=== PATIENT | female | born 1985 | race Caucasian/White ===

== ENCOUNTER 2019-07-22 16:35 | Inpatient (IN) | payer SELFPAY ==
[2019-07-22 16:59] VITALS: BMI 35.4
--- NOTE | 2019-07-22 17:40 | HP.PCM_ITS ---
History Date of Admission: 07/22/19 Final JOSIAH: 07/25/19 Gestational age: 39 Weeks and 4 Days History of this : This is a 34 year-old, G [], P [], at weeks gestational age. Surgical History: Surgical History (Last Updated 07/22/19 @ 17:43 by Wendy Lux) H/O oral surgery Z98.890 Allergies No Known Allergies Allergy (Verified 07/22/19 17:00) Home Medications: Home Medications Vits [Prenatabs FA] 1 tab PO DAILY 07/22/19 Alcohol: None Number of Fetus(es): 1 NST - FHR Rate Baby A Baseline: 130 Variability:: Moderate Accelerations:: 15 x 15 NST Reactive:: Yes Uterine Activity:: Irregular History Past Pregnancies: Past Pregnancies Delivery Date Name GA/ Weeks Outcome Route Wt Infant Sex Labor Length Anesthesia Delivery Location Provider FOB Labs: See [facility] Physical Exam General: Alert, Oriented x3 Abdomen: Soft, Non Tender, Non-Distended, Gravid Neurological: Cranial nerves II-XII grossly intact PATIENT REGISTRATION MANAGER: Normal external genitalia Presentation: Cephalic Cervix Dilation (cm): 4 - AROM clear amniotic fluid Station: -2 Effacement (%): 4 Assessment/Plan This is a 34 year-old, at 39&4 weeks gestational age. Admit to L&D Expectant management Borderline BP & proteinuria in office - check preE labs Epidural as desired EFW - less that 4500g, patient with adequate pelvis
[2019-07-22] MEDS: Lactated Ringers 1,000 ML 50 ML IV (17:50)
[2019-07-22 18:24] LABS: Protein, Urine (Random) 53.1 mg/dL (<11.9); Protein:Creat Ratio 641 mg/g CRE (0-200)
[2019-07-22 18:30] LABS: Absolute Lymphocyte Count 1.78 X10^3/uL (0.83-4.51); Absolute Neutrophil Count 5.3 X10^3/uL (2.0-7.7); Basophil# 0.02 X10^3/uL; Basophil% 0.3 % (0-1); Eosinophil# 0.29 X10^3/uL; Eosinophils% 3.7 % (0-5); Hematocrit 37.6 % (37-47); Hemoglobin 12.5 g/dL (12.0-15.0); Lymphocyte # 1.78 X10^3/ul (4.0); Lymphocyte % 22.6 % (19-41); Mean Corp Hgb Conc 33.2 g/dL (32-36); Mean Corpuscular Hgb 29.4 pg (27.0-32.0); Mean Corpuscular Volume 88.5 fL (81-99); Mean Platelet Vol. 11.6 fl (6.2-12.0); Monocyte# 0.37 X10^3/uL; Monocyte% 4.7 % (0-10); NRBC Flagged by Analyzer 0 % (0-5); Neutrophil # 5.34 X10^3/uL (2.7-7.7); Neutrophil % 67.8 % (47-70); Platelet Count 220 K/mm3 (150-450); RBC Distribution Width CV 14.7 % (11.6-14.6); RBC Distribution Width SD 47.3 fl (35.1-43.9); Red Blood Count 4.25 M/mm3 (4.2-5.4); White Blood Count 7.9 K/mm3 (4.4-11.0)
[2019-07-22 18:37] LABS: AST(SGOT) 29 U/L (15-37); Alanine Aminotransfer ALT/SGPT 31 U/L (13-56); Creatinine, Serum 0.81 mg/dL (0.55-1.02); EST Glomerular Filtration Rate 87 mL/min (>60); Est Glom Filt Rate - Afr Amer 105 mL/min (>60); Estimated Creatinine Clearance 78.86 ml/min; Uric Acid 5.4 mg/dL (2.6-6.0)
[2019-07-22] MEDS: Oxytocin 30 units/NS 500 ml 30 UNITS/500 ML IV.SOLN IV (22:29)
[2019-07-23] VITALS (15 sets, daily range): BP systolic 106–137; BP diastolic 61–86; PULSE 76–91; RESP 15–18; TEMP 36.8–37.7; O2SAT 95–99
[2019-07-23] MEDS: fentaNYL-bupivacaine (epidural) 100 ML BAG EPIDURAL ×2 (02:25→11:35)
[2019-07-23] MEDS: Amnioinfusion- 0.9% NS 1,000 ML IV.SOLN. 50 ML INTRA-UTER (03:33)
[2019-07-23] MEDS: Lactated Ringers 1,000 ML 200 ML IV ×3 (06:52→14:20)
--- NOTE | 2019-07-23 08:15 | PCM.PN.BLA ---
Progress Note At bedside to check patient. Cvx 8/80/-1, unable to tell position given caput. Category 1 tracing. [employer] w/ ctx's q 4-5 min. Not in adequate labor. Will restart pitocin.
[2019-07-23] MEDS: Sodium Citrate/Citric Acid 30 ML UDC PO (17:04)
--- NOTE | 2019-07-23 17:24 | PCM.PN.BLA ---
Progress Note Delayed note. At bedside to check pt. Still 9 cm dilated with cervix noted anteriorly and along patient's left side. Cervix is swollen. Unable to palpate position given significant caput. Recommended section for arrest of dilation. Has remained 9 cm dilated for 6 hours with inadequate contractions and at times coupling of contractions. Temp 100.3. Reviewed r/b/a of a section and patient gave consent. She desires to proceed with a section. Category 1 tracing.
[2019-07-23] MEDS: Oxytocin 30 units/NS 500 ml 30 UNITS/500 ML IV.SOLN 167 UNITS IV (19:00)
[2019-07-23] MEDS: Cefazolin 2 GM in 0.9% Normal Saline 100 ML IV (19:06)
--- NOTE | 2019-07-23 19:13 | PCM.OPRPT ---
Problem List (1) Failure to progress in labor Status: Acute (2) 39 weeks gestation of Status: Acute Report of Operation Date of Procedure: 07/23/19 Pre-Operative Diagnosis: 39 week gestation, failure to progress in labor Post-Operative Diagnosis: As above, narrow maternal pelvis, CPD Surgery/Procedure Performed:: PLTCS via pfannenstiel incision Description of Surgical Findings:: Normal-appearing uterus and bilateral tubes and ovaries. Narrow maternal pelvis. Fetus in vertex position. Clear fluid. Intact and normal appearing placenta. Type of Anesthesia:: Epidural Specimen's removed: Placenta Drains: Garcia Estimated Blood Loss (mL): 900 cc Description of Procedure: Indications: The patient presented in labor at 39 weeks gestation. She progressed to 9.5 cm with pitocin. She remained at 9.5 cm for 6 hours despite inadequate contractions. Pitocin had to occasionally be turned off for intolerance. Her cervix became swollen and she had a temperature of 100.3. After discussion of risks, benefits, and alternatives she desired to proceed with a primary section for failure to progress in labor. Procedure: The patient was taken to the operating room where she was prepped and draped in the usual fashion in supine position with a leftward tilt. The epidural was used for anesthesia. A Pfannenstiel skin incision was made and carried to the underlying layer of the fascia using the scalpel. The fascia was incised in the midline and extended laterally using Fuentes scissors. The fascia was dissected off of the rectus muscles using a combination of blunt and sharp dissection. The rectus muscles were entered in the midline. The peritoneum was entered carefully using sharp dissection, and the peritoneal incision was extended cephalad and caudad with good visualization of the bladder. A low transverse incision was made on the uterus. Clear fluid was noted. A hand from below was needed to elevate the head to the incision. The head was then delivered without any force or delay, followed easily by the body. The cord was clamped and cut after 60 sec delay. The baby was handed off to the nursery staff. The maternal pelvis was felt to be very narrow, and there was cephalopelvic disproportion. The placenta was delivered using manual extraction and noted to be normal-appearing. The uterus was exteriorized and cleared of all clot and debris. The adnexa were noted to be normal. The uterine incision was closed in a double layer using Vicryl in a running fashion. The uterus was then placed back in the abdomen. The uterine incision was noted to be hemostatic. The peritoneum was closed with Vicryl in a running fashion. The fascia was closed with Vicryl in a running fashion. The subcutaneous layer was irrigated and closed reapproximated using Vicryl. The skin was reapproximated in a running layer using Monocryl. At the end of the case all instrument counts were correct. The patient was taken to the recovery room in stable condition. Grafts/Implants Used: None - Complications None - Admit VTE Documentation VTE Present on Admission: No VTE Mechan Device Prophylaxis: SCD's VTE Pharm Prophylaxis ordered?: Yes Delivery Classification: GAYATHRI Gestational age: 39 weeks Date of Procedure: 07/23/19 Indications for : Failure to Progress Amniotic Fluid Description: Clear Drain: Garcia to straight drain Cord Entanglement: Around neck x 1, loose Nuchal Cord Compression: Without compression Cord Vessel Description: 3 Vessels Infant Gender: Male Delayed cord clamping: Yes Complications: None
--- NOTE | 2019-07-23 19:35 | NURSING ---
Surgicel powder lot number [id number]
[2019-07-23] MEDS: Acetaminophen 500 MG Tablet 1000 MG PO (21:17)
[2019-07-23] MEDS: Lactated Ringers 1,000 ML 100 ML IV (22:03)
[2019-07-24] VITALS (16 sets, daily range): BP systolic 93–110; BP diastolic 46–73; PULSE 77–100; RESP 14–18; TEMP 36.9–37.5; O2SAT 95–99
[2019-07-24] MEDS: Ketorolac 30 MG/ML Syringe IV ×4 (00:06→18:12)
[2019-07-24 06:12] LABS: Hematocrit 29.6 % (37-47); Hemoglobin 9.9 g/dL (12.0-15.0); Mean Corp Hgb Conc 33.4 g/dL (32-36); Mean Corpuscular Hgb 29.9 pg (27.0-32.0); Mean Corpuscular Volume 89.4 fL (81-99); Mean Platelet Vol. 10.7 fl (6.2-12.0); Platelet Count 167 K/mm3 (150-450); RBC Distribution Width CV 14.7 % (11.6-14.6); RBC Distribution Width SD 47.8 fl (35.1-43.9); Red Blood Count 3.31 M/mm3 (4.2-5.4); White Blood Count 16.9 K/mm3 (4.4-11.0)
--- NOTE | 2019-07-24 10:41 | NURSING ---
pt. asymptomatic for dizziness or feeling light headed
[2019-07-24] MEDS: 0.9% Saline Lock 10 ML Syringe IV ×2 (12:07→18:13)
--- NOTE | 2019-07-24 13:07 | PCM.PN.OB ---
Patient Problems: Active and Suspected Problems (Last Updated 07/22/19 @ 17:43 by Wendy Lux) Failure to progress in labor (Acute) Subjective: Patient is doing well. She is up to chair. She denies lightheadedness, dizziness, chest pain, shortness of breath, palpitations, uncontrolled pain, leg pain. Lochia is normal. She is tolerating food without nausea or vomiting. Breast-feeding without any complaints. - Physical Exam Vitals/I&O's: Vital Signs Temp Pulse Resp BP Pulse Ox 98.9 F 96 16 94/46 L 98 07/24/19 12:31 07/24/19 12:31 07/24/19 12:31 07/24/19 12:31 07/24/19 12:31 Oxygen Delivery Method Room Air Weight: 199 lb 15.348 oz Body Mass Index (BMI) 35.4 Intake and Output for Last 24 Hours 07/22/19 07/23/19 07/24/19 23:59 23:59 23:59 Intake Total 268.70 / 268.70 3651.86 / 3651.86 995 / 995 Output Total 650 / 650 800 / 800 Balance 268.70 / 268.70 3001.86 / 3001.86 195 / 195 General: Alert, No apparent distress HEENT: Atraumatic Abdomen: Soft, Non Tender, - - FF, dressing c/d/i Extremities: No Calf Tenderness, Edema Skin: No rashes Neurological: Neuro grossly intact Psych/Mental Status: Normal Affect, Appropriate Laboratory Results 07/24/19 06:00: WBC 16.9 H, RBC 3.31 L, Hgb 9.9 L, Hct 29.6 L, MCV 89.4, MCH 29.9, MCHC 33.4, RDW Std Deviation 47.8 H, RDW Coeff of Ganesh 14.7 H, Plt Count 167, MPV 10.7 Current Medications Acetaminophen (Tylenol) 1,000 mg PO Q8H PRN PRN Reason: Pain Score 1-3/10 Last Admin: 07/23/19 21:17 Dose: 1,000 mg Documented by: Bisacodyl (Dulcolax) 10 mg RECTAL UD PRN PRN Reason: If no BM Enoxaparin Sodium (Lovenox) 40 mg SC DAILY LUZ Hydrocortisone (Hytone) 1 applic TOPICAL TID PRN PRN; Protocol PRN Reason: Discomfort Lactated Ringer's () 1,000 mls @ 100 mls/hr IV .Q10H [facility] Last Infusion: 07/24/19 08:00 Dose: Infused Documented by: Naloxone HCl 4 mg/ Dextrose 504 mls @ 0 mls/hr IV .Q0M PRN; Protocol PRN Reason: Respiratory depression Ketorolac Tromethamine (Toradol) 30 mg IV Q6H [facility] Stop: 07/25/19 18:16 Last Admin: 07/24/19 12:07 Dose: 30 mg Documented by: Methylergonovine Maleate (Methergine) 0.2 mg IM X1 PRN PRN Reason: Uterine Atony Naloxone HCl (Narcan) 0.02 mg IV Q1M PRN PRN Reason: RR <10 and pt unresponsive Ondansetron HCl (Zofran) 4 mg IV Q4H PRN PRN PRN Reason: Nausea Oxycodone HCl (Oxyir) 5 - 10 mg PO Q4H PRN PRN PRN Reason: Pain Score 4-10/10 Prochlorperazine Edisylate (Compazine Iv) 10 mg IV Q6H PRN PRN PRN Reason: NAUSEA Senna/Docusate Sodium (Senokot-S, Lorie-Colace) 0 tablet PO DAILY PRN PRN Reason: Constipation Simethicone (Mylicon) 80 mg PO PCHS PRN PRN Reason: Indigestion/stomach pain Sodium Chloride () 5 - 15 ml IV UD PRN PRN Reason: SALINE FLUSH Last Admin: 07/24/19 12:07 Dose: 10 ml Documented by: Medical Necessity - Tobacco Use Smoking Status: Never smoker Assessment/Plan All Active Problems (Last Updated 07/22/19 @ 17:43 by Wendy Lux) Failure to progress in labor (Acute) PPD#1 s/p PLTCS for FTP in labor - Pt doing well - - Routine care - Dispo: Possible d/c home tomorrow
--- NOTE | 2019-07-24 14:20 | NURSING ---
discussed patient's increase in WBC count and low grade fever overnight with Dr. Orellana, discussed pt.'s afebrile condition throughout the day, Dr. Orellana does not wish to draw any further CBC's at this point, discussed to monitor patients clinical presentation further for indication of infection and watch for increased pain in abdomen
[2019-07-24] MEDS: Enoxaparin 40 MG/0.4 ML Syringe SC (20:34)
[2019-07-25] MEDS: 0.9% Saline Lock 10 ML Syringe IV (00:04)
[2019-07-25] MEDS: Ketorolac 30 MG/ML Syringe IV (00:04)
[2019-07-25 01:52] VITALS: BP 115/55; PULSE 98; RESP 18; TEMP 36.5
[2019-07-25] MEDS: Acetaminophen 500 MG Tablet 1000 MG PO (06:07)
--- NOTE | 2019-07-25 07:00 | NURSING ---
Encouraged patient to ambulate to bathroom to urinate. Educated patient on blood clot risks due to lack of ambulation. Patient verbalizes understanding, but told this RN, not right now when asked if she would ambulate to the bathroom.
--- NOTE | 2019-07-25 08:18 | PCM.PN.OB ---
Patient Problems: Active and Suspected Problems (Last Updated 07/22/19 @ 17:43 by Wendy Lux) Failure to progress in labor (Acute) 39 weeks gestation of (Acute) Subjective: Seen at bedside, doing well. Patient reports good pain control. Mild lochia. Voiding without difficulty. Patient denies any headaches, visual changes. Breast-feeding is going well. Patient requesting DC home tomorrow - Physical Exam Vitals/I&O's: Vital Signs Temp Pulse Resp BP Pulse Ox 97.7 F L 98 18 115/55 L 97 07/25/19 01:52 07/25/19 01:52 07/25/19 01:52 07/25/19 01:52 07/24/19 20:44 Oxygen Delivery Method Room Air Weight: 90.7 kg Body Mass Index (BMI) 35.4 Intake and Output for Last 24 Hours 07/23/19 07/24/19 07/25/19 23:59 23:59 23:59 Intake Total 3651.86 / 3651.86 995 / 995 Output Total 650 / 650 1450 / 1450 Balance 3001.86 / 3001.86 -455 / -455 General: Alert, Oriented x3 Abdomen: Soft, Non-Distended, - - fundus firm. dressing dry and intact Extremities: No Calf Tenderness Current Medications Acetaminophen (Tylenol) 1,000 mg PO Q8H PRN PRN Reason: Pain Score 1-3/10 Last Admin: 07/25/19 06:07 Dose: 1,000 mg Documented by: Bisacodyl (Dulcolax) 10 mg RECTAL UD PRN PRN Reason: If no BM Enoxaparin Sodium (Lovenox) 40 mg SC DAILY [facility] Last Admin: 07/24/19 20:34 Dose: 40 mg Documented by: Hydrocortisone (Hytone) 1 applic TOPICAL TID PRN PRN; Protocol PRN Reason: Discomfort Lactated Ringer's () 1,000 mls @ 100 mls/hr IV .Q10H [facility] Last Admin: 07/25/19 05:13 Dose: Not Given Documented by: Naloxone HCl 4 mg/ Dextrose 504 mls @ 0 mls/hr IV .Q0M PRN; Protocol PRN Reason: Respiratory depression Ketorolac Tromethamine (Toradol) 30 mg IV Q6H [facility] Stop: 07/25/19 18:16 Last Admin: 07/25/19 06:09 Dose: Not Given Documented by: Methylergonovine Maleate (Methergine) 0.2 mg IM X1 PRN PRN Reason: Uterine Atony Naloxone HCl (Narcan) 0.02 mg IV Q1M PRN PRN Reason: RR <10 and pt unresponsive Ondansetron HCl (Zofran) 4 mg IV Q4H PRN PRN PRN Reason: Nausea Oxycodone HCl (Oxyir) 5 - 10 mg PO Q4H PRN PRN PRN Reason: Pain Score 4-10/10 Prochlorperazine Edisylate (Compazine Iv) 10 mg IV Q6H PRN PRN PRN Reason: NAUSEA Senna/Docusate Sodium (Senokot-S, Lorie-Colace) 0 tablet PO DAILY PRN PRN Reason: Constipation Simethicone (Mylicon) 80 mg PO PCHS PRN PRN Reason: Indigestion/stomach pain Sodium Chloride () 5 - 15 ml IV UD PRN PRN Reason: SALINE FLUSH Last Admin: 07/25/19 00:04 Dose: 10 ml Documented by: Medical Necessity - Tobacco Use Smoking Status: Never smoker Assessment/Plan All Active Problems (Last Updated 07/22/19 @ 17:43 by Wendy Lux) Failure to progress in labor (Acute) 39 weeks gestation of (Acute) POD#2, doing well routine care pain mgmt ambulation dc home likely tomorrow
[2019-07-25 08:38] VITALS: BP 108/68; PULSE 79; RESP 18; TEMP 37.3
[2019-07-25] MEDS: Enoxaparin 40 MG/0.4 ML Syringe SC (10:17)
[2019-07-25] MEDS: Ibuprofen 600 MG Tablet PO ×2 (10:28→16:37)
[2019-07-25 14:00] VITALS: BP 116/72; PULSE 82; TEMP 37.2; O2SAT 94
[2019-07-25 16:00] VITALS: BP 137/67; PULSE 97; RESP 16; TEMP 36.4; O2SAT 96
[2019-07-25 19:30] VITALS: BP 138/79; PULSE 92; RESP 18; TEMP 36.9; O2SAT 99
[2019-07-26 01:38] VITALS: BP 133/56; PULSE 87; RESP 16; TEMP 36.9; O2SAT 96
[2019-07-26] MEDS: Ibuprofen 600 MG Tablet PO ×2 (03:26→14:06)
--- NOTE | 2019-07-26 08:41 | PCM.PN.OB ---
Patient Problems: Active and Suspected Problems (Last Updated 07/22/19 @ 17:43 by Wendy Lux) Failure to progress in labor (Acute) 39 weeks gestation of (Acute) Subjective: Patient seen at bedside, doing well. Patient reports good pain control. Mild lochia. Passing flatus. Tolerating regular diet. Breast-feeding going well. - Physical Exam Vitals/I&O's: Vital Signs Temp Pulse Resp BP Pulse Ox 98.5 F 87 16 133/56 H 96 07/26/19 01:38 07/26/19 01:38 07/26/19 01:38 07/26/19 01:38 07/26/19 01:38 Oxygen Delivery Method Room Air Weight: 90.7 kg Body Mass Index (BMI) 35.4 Intake and Output for Last 24 Hours 07/24/19 07/25/19 07/26/19 23:59 23:59 23:59 Intake Total 995 / 995 Output Total 1450 / 1450 Balance -455 / -455 General: Alert, Oriented x3 Abdomen: Soft, Non-Distended, - - fundus firm. Dressing dry and intact Extremities: No Calf Tenderness Current Medications Acetaminophen (Tylenol) 1,000 mg PO Q8H PRN PRN Reason: Pain Score 1-3/10 Last Admin: 07/25/19 06:07 Dose: 1,000 mg Documented by: Bisacodyl (Dulcolax) 10 mg RECTAL UD PRN PRN Reason: If no BM Enoxaparin Sodium (Lovenox) 40 mg SC DAILY [facility] Last Admin: 07/25/19 10:17 Dose: 40 mg Documented by: Hydrocortisone (Hytone) 1 applic TOPICAL TID PRN PRN; Protocol PRN Reason: Discomfort Naloxone HCl 4 mg/ Dextrose 504 mls @ 0 mls/hr IV .Q0M PRN; Protocol PRN Reason: Respiratory depression Ibuprofen (Motrin) 600 mg PO Q6H PRN PRN PRN Reason: Pain Score 1-3/10 Last Admin: 07/26/19 03:26 Dose: 600 mg Documented by: Methylergonovine Maleate (Methergine) 0.2 mg IM X1 PRN PRN Reason: Uterine Atony Naloxone HCl (Narcan) 0.02 mg IV Q1M PRN PRN Reason: RR <10 and pt unresponsive Ondansetron HCl (Zofran) 4 mg IV Q4H PRN PRN PRN Reason: Nausea Oxycodone HCl (Oxyir) 5 - 10 mg PO Q4H PRN PRN PRN Reason: Pain Score 4-10/10 Prochlorperazine Edisylate (Compazine Iv) 10 mg IV Q6H PRN PRN PRN Reason: NAUSEA Senna/Docusate Sodium (Senokot-S, Lorie-Colace) 0 tablet PO DAILY PRN PRN Reason: Constipation Simethicone (Mylicon) 80 mg PO PCHS PRN PRN Reason: Indigestion/stomach pain Last Admin: 07/25/19 16:37 Dose: 80 mg Documented by: Sodium Chloride () 5 - 15 ml IV UD PRN PRN Reason: SALINE FLUSH Last Admin: 07/25/19 00:04 Dose: 10 ml Documented by: Medical Necessity - Tobacco Use Smoking Status: Never smoker Assessment/Plan All Active Problems (Last Updated 07/22/19 @ 17:43 by Wendy Lux) Failure to progress in labor (Acute) 39 weeks gestation of (Acute) POD#3,doing well routine care pain mgmt dc home
--- NOTE | 2019-07-26 08:43 | DCINST_ITS ---
Discharge Diet: No Restrictions Discharge Activity: Return to Normal Activity, May Not Drive - for 2 weeks, May not drive while taking narcotic pain medications., May Shower, May Take a Tub Bath - in 7 days. May resume sexual activity in: 4-6 weeks Lifting Restrictions: 20 pounds Additional Activity Instructions:: Nothing in the vagina for 4-6 weeks. You may return to work/school in 6 weeks. Call your doctor if your incision/area has: Continuous Slow Oozing, Sudden Increased Bleeding, Increased Pain/ Swelling, Increased Redness, Foul Smelling Discharge Call your doctor if you observe: Fever of 101 or Higher, Using more than one pad per hour - for 2 hours Suture Line Care: Avoid Pulling/Pushing, Avoid Pinching/Bending Cleanse incision/area with: Keep Dressing Clean & Dry Additional Instructions: If you experience any of the following, contact your healthcare provider. * Bleeding that soaks a pad every hour for 2 hours * Fever 100.4 or higher * Unrelieved incision or abdominal pain * Swelling, redness, discharge or bleeding from your incision or episiotomy site * Your incision begins to separate * Problems urinating (including inability to urinate or burning while urinating). * Visual changes * Severe headache * Flu-like symptoms * Pain or redness in one of both of your breasts * Pain, warmth, tenderness or swelling in your legs, especially the calf area * Frequent nausea and vomiting * Symptoms of depression or anxiety If you experience any of the following, call 911 or go to the nearest Emergency Room. * Chest pain * Problems breathing * Seizure activity * Partial or complete paralysis of a body part, slurred speech, weakness or drooping of the face, or a sudden inability to walk or hold your balance Allergies/Adverse Reactions: Allergies No Known Allergies Allergy (Verified 07/22/19 17:00) Medications to take at Discharge Vits [Prenatabs FA ] 1 tab PO DAILY 07/22/19 Acetaminophen [Tylenol] 1,000 mg PO Q8H PRN #30 tab 07/25/19 Ibuprofen [Motrin] 600 mg PO Q6H PRN PRN #60 tab 07/25/19 Oxycodone [Oxyir] 5 - 10 mg PO Q4H PRN PRN 7 Days #20 tab 07/25/19 Senna/Docusate Sodium [Senokot-S] 1 tab PO DAILY PRN #30 tab 07/25/19 SimETHICONE [Mylicon] 80 mg PO PCHS PRN #30 tab 07/25/19 The following prescriptions were given: Ibuprofen [Motrin] 600 mg PO Q6H PRN PRN #60 tab PRN Reason: Pain Or Fever Transmission Status: Received by [id number] SimETHICONE [Mylicon] 80 mg PO PCHS PRN #30 tab PRN Reason: Indigestion/stomach pain Transmission Status: Received by [id number] Oxycodone [Oxyir] 5 - 10 mg PO Q4H PRN PRN 7 Days #20 tab PRN Reason: Pain Score 6-10/10 Transmission Status: Received by [id number] Senna/Docusate Sodium [Senokot-S] 1 tab PO DAILY PRN #30 tab PRN Reason: Constipation Transmission Status: Received by [id number] Acetaminophen [Tylenol] 1,000 mg PO Q8H PRN #30 tab PRN Reason: Pain Score 1-3/10 Transmission Status: Received by [id number] Follow-Up: Call to make an appointment with your doctor for an incision check in 1 week. You will also need a 6 week post- follow up appointment. Test results from this visit will be discussed in further detail at your follow- up appointment, if applicable. Please Follow Up With: Liz Matthews MD - Call to make an appointment for an incision check in 1 [phone] When: You will need a post- check in 6 weeks. Primary Care Physician: Care Physician,No Primary [Primary Care Provider] -
--- NOTE | 2019-07-26 08:44 | PCM.DC.BLA ---
Discharge Summary Date of Admission: 07/22/19 Date of Discharge: 07/26/19 Summary: Patient was admitted to [facility] for labor induction for elevated blood pressure. She progressed to 9-1/2 cm and had arrest of dilation with cephalopelvic disproportion. She underwent a primary low transverse section by Dr. Ashley Orellana with an uncomplicated postoperative course. She was discharged home on postoperative day #3 in stable condition. Patient Problems: Active and Suspected Problems (Last Updated 07/22/19 @ 17:43 by Wendy Lux) Failure to progress in labor (Acute) 39 weeks gestation of (Acute) - Physical Exam Vitals/I&O's: Vital Signs Temp Pulse Resp BP Pulse Ox 98.5 F 87 16 133/56 H 96 07/26/19 01:38 07/26/19 01:38 07/26/19 01:38 07/26/19 01:38 07/26/19 01:38 Oxygen Delivery Method Room Air Weight: 90.7 kg Body Mass Index (BMI) 35.4 Intake and Output for Last 24 Hours 07/24/19 07/25/19 07/26/19 23:59 23:59 23:59 Intake Total 995 / 995 Output Total 1450 / 1450 Balance -455 / -455 Current Medications Acetaminophen (Tylenol) 1,000 mg PO Q8H PRN PRN Reason: Pain Score 1-3/10 Last Admin: 07/25/19 06:07 Dose: 1,000 mg Documented by: Bisacodyl (Dulcolax) 10 mg RECTAL UD PRN PRN Reason: If no BM Enoxaparin Sodium (Lovenox) 40 mg SC DAILY [facility] Last Admin: 07/25/19 10:17 Dose: 40 mg Documented by: Hydrocortisone (Hytone) 1 applic TOPICAL TID PRN PRN; Protocol PRN Reason: Discomfort Naloxone HCl 4 mg/ Dextrose 504 mls @ 0 mls/hr IV .Q0M PRN; Protocol PRN Reason: Respiratory depression Ibuprofen (Motrin) 600 mg PO Q6H PRN PRN PRN Reason: Pain Score 1-3/10 Last Admin: 07/26/19 03:26 Dose: 600 mg Documented by: Methylergonovine Maleate (Methergine) 0.2 mg IM X1 PRN PRN Reason: Uterine Atony Naloxone HCl (Narcan) 0.02 mg IV Q1M PRN PRN Reason: RR <10 and pt unresponsive Ondansetron HCl (Zofran) 4 mg IV Q4H PRN PRN PRN Reason: Nausea Oxycodone HCl (Oxyir) 5 - 10 mg PO Q4H PRN PRN PRN Reason: Pain Score 4-10/10 Prochlorperazine Edisylate (Compazine Iv) 10 mg IV Q6H PRN PRN PRN Reason: NAUSEA Senna/Docusate Sodium (Senokot-S, Lorie-Colace) 0 tablet PO DAILY PRN PRN Reason: Constipation Simethicone (Mylicon) 80 mg PO PCHS PRN PRN Reason: Indigestion/stomach pain Last Admin: 07/25/19 16:37 Dose: 80 mg Documented by: Sodium Chloride () 5 - 15 ml IV UD PRN PRN Reason: SALINE FLUSH Last Admin: 07/25/19 00:04 Dose: 10 ml Documented by:
[2019-07-26 09:30] VITALS: BP 133/71; PULSE 63; RESP 18; TEMP 36.6; O2SAT 99
[2019-07-26] MEDS: Enoxaparin 40 MG/0.4 ML Syringe SC (09:33)
[2019-07-26] MEDS: Acetaminophen 500 MG Tablet 1000 MG PO (09:34)
[2019-07-26 14:08] VITALS: BP 126/70; PULSE 74; RESP 17; TEMP 36.8
== END 2019-07-26 16:55 | disposition home or self-care (01) | DRG 788 ==
PROVIDERS: Obstetrics & Gynecology; Admitting Provider Obstetrics & Gynecology; Referring Provider Obstetrics & Gynecology; Visit Provider Obstetrics & Gynecology
DX: O12.14 Gestational proteinuria, complicating childbirth (principal); R03.0 Elevated blood-pressure reading, without diagnosis of hypertension; O33.9 Maternal care for disproportion, unspecified; O62.2 Other uterine inertia; O69.81X0 Labor and delivery complicated by cord around neck, without compression, not applicable or unspecified; Z3A.39 39 weeks gestation of pregnancy; Z37.0 Single live birth
CPT/HCPCS: 59025; 59050; 82565; 82570; 84156; 84450; 84460; 84550; 85025; 85027; 86850; 86900; 86901; 99218; J7030; J7120; A4216; G0378; J2405

== ENCOUNTER → 2020-07-30 | Outpatient (CLI) | payer MEDICARE, SELFPAY ==
[2020-07-30 09:02] VITALS: BMI 26.2
== END | disposition home or self-care (01) ==
LOC: LABSPEC 10:28
PROVIDERS: Referring Provider Physician Assistant Surgical; Visit Provider Physician Assistant Surgical
DX: Z20.828 Contact with and (suspected) exposure to other viral communicable diseases (principal)
CPT/HCPCS: 87635; U0003

== ENCOUNTER 2022-10-09 10:48 | Inpatient (IN) | payer BC, SELFPAY ==
[2022-10-09] VITALS (15 sets, daily range): BP systolic 103–139; BP diastolic 53–88; PULSE 71–109; RESP 14–16; TEMP 36.1–36.6; O2SAT 95–100; BMI 35.6
[2022-10-09 11:26] LABS: Absolute Lymphocyte Count 1.67 X10^3/uL (0.83-4.51); Absolute Neutrophil Count 3.4 X10^3/uL (2.0-7.7); Basophil# 0.02 X10^3/uL; Basophil% 0.4 % (0-1); Eosinophil# 0.23 X10^3/uL; Eosinophils% 4.1 % (0-5); Hematocrit 34.5 % (37-47); Hemoglobin 11.4 g/dL (12.0-15.0); Lymphocyte # 1.67 X10^3/ul (0.83-4.51); Lymphocyte % 29.7 % (19-41); Mean Corpuscular Hgb 28.9 pg (27.0-32.0); Mean Corpuscular Volume 87.6 fL (81-99); Mean Platelet Vol. 10.4 fl (6.2-12.0); Monocyte# 0.25 X10^3/uL; Monocyte% 4.4 % (0-10); NRBC Flagged by Analyzer 0 % (0-5); Neutrophil # 3.39 X10^3/uL (2.7-7.7); Neutrophil % 60.3 % (47-70); Platelet Count 223 K/mm3 (150-450); RBC Distribution Width CV 14.6 % (11.6-14.6); RBC Distribution Width SD 47.1 fl (35.1-43.9); Red Blood Count 3.94 M/mm3 (4.2-5.4); White Blood Count 5.6 K/mm3 (4.4-11.0)
[2022-10-09] MEDS: Acetaminophen 500 MG Tablet 1000 MG PO ×3 (11:29→23:36)
[2022-10-09] MEDS: Lactated Ringers 1,000 ML 999 ML IV (11:30)
[2022-10-09] MEDS: Lactated Ringers 1,000 ML 150 ML IV (12:23)
--- NOTE | 2022-10-09 14:39 | NURSING ---
1200 plan of care is to proceed with the scheduled csection at 1530 today since pt. had orange juice at 1000
--- NOTE | 2022-10-09 14:40 | NURSING ---
dr crespo office notified that a H and P needs done on pt. prior to csection
[2022-10-09] MEDS: Sodium Citrate/Citric Acid 30 ML UDC PO (15:12)
[2022-10-09] MEDS: Cefazolin 2 GM in 0.9% Normal Saline 100 ML IV (15:39)
--- NOTE | 2022-10-09 15:42 | PCM.HP.OB ---
HPI - General General Date of Admission: 10/09/22 HPI Narrative RADHA NESS, is a 37 F who presents Maternal Data Information Final JOSIAH: 10/11/22 Gestational age: 39&5 PFSH PFSH Medical History Advanced maternal age (AMA) in Asthma Gallstones Home Medications vits,calcium no.78-iron fumarate-folic acid 29 mg-1 mg tablet 1 tab PO DAILY 07/22/19 [History Last Taken 07/21/19 22:00] albuterol 90 mcg/actuation aerosol inhaler 90 mcg inhalation Q6H PRN PRN asthma 10/09/22 [History Last Taken Unknown] aspirin 81 mg chewable tablet 81 mg PO DAILY 10/09/22 [History Last Taken Unknown] cetirizine 10 mg tablet (Zyrtec) 10 mg PO DAILY asthma 10/09/22 [History Last Taken 10/08/22 22:00] montelukast 10 mg tablet (Singulair) 10 mg PO DAILY asthma 10/09/22 [History Last Taken 10/08/22 22:00] Allergy/AdvReac Type Severity Reaction Status Date / Time No Known Allergies Allergy Verified 07/30/20 09:04 Surgical History (Updated 10/09/22 @ 15:[address] Wendy Lux MD) H/O oral surgery Previous section Previous section Social History Smoking Status: Never smoker History Elective abortions Hx Para 1 Spontaneous abortions Hx # Term Pregnancies Ectopic pregnancies Hx # Pregnancies Multiple births # of living children Vital Signs Vital Signs Vital Signs: 10/09/22 11:36 10/09/22 15:18 Temperature 97.3 F L 97 F L Temperature Source Temporal Temporal Pulse Rate 90 84 Respiratory Rate 16 16 Blood Pressure 118/73 139/88 H Blood Pressure Mean 88 105 Blood Pressure Source Monitor Monitor Blood Pressure Position Semi-Fowlers Semi-Fowlers Blood Pressure Location Left Arm Left Arm Pulse Ox 99 95 Oxygen Delivery Method Room Air Room Air Weight Weight: 201 lb Body Mass Index (BMI) 35.6 Labs Labs Labs: Blood Type A POSITIVE Antibody Screen NEGATIVE Hct 34.5 % (37-47) L Hgb 11.4 g/dL (12.0-15.0) L Rhogam given: No See [facility] H&P Assessment & Plan (1) Previous section: COMMENT: @ 39&5 PLAN: Plan Admit to L&D MOD - patient counseled on R/B/A and will proceed with repeat . Informed consent signed. Routine care
--- NOTE | 2022-10-09 16:52 | EX.PCM.OBRPT ---
Maternal Data Information Final JOSIAH: 10/11/22 Gestational age: 39&5 Details Operative Information Date of Procedure: 10/09/22 Pre-Operative Diagnosis: (1) Prior section Post-Operative Diagnosis: Same Indications for : Repeat Elective Indications Narrative: The patient was taken to the operating room where spinal anesthesia was placed & found to be adequate. She was prepped and draped in the dorsal supine position with a leftward tilt. A Pfannenstiel skin incision was made approximately 2 cm above the symphysis pubis and carried through to the underlying fascia with the scalpel. The fascia was incised incised in the midline and extended laterally with the Fuentes scissors. The rectus muscles were in the midline and the peritoneum was entered carefully and bluntly. The peritoneal incision was stretched and the bladder blade was inserted. Vesicouterine peritoneum was tented up, incised & then bladder flap created gently. The uterine incision was made in a low transverse fashion with the scalpel and extended superiorly and inferiorly with blunt dissection. The 's head was brought to the incision in the flexed position and delivered without difficulty. The head was gently guided to allow delivery of the anterior and posterior shoulders. The body then delivered with fundal pressure in the standard fashion. The 3VC cord was clamped and cut in delayed fashion. The was handed off to the waiting pediatrician/medical doctor. The placenta was delivered with fundal massage and gentle traction in the standard fashion. The uterus was exteriorized and cleared of clots and debris. The uterine incision was closed with #1 Vicryl suture in a running locked fashion. Monocryl suture was used in an imbricating fashion. 3 additional figure of 8 sutures placed to obtain excellent hemostasis. A hematoma on the right side of the uterine incision was monitored & stable. The incision was examined and was found to be hemostatic. The uterus was returned to the abdominal cavity. After irrigating Agatha was placed over the uterine incision as some areas were denuded (but hemostatic). The rectus muscle was examined and any bleeding was Bovie cauterized. The fascia was closed with PDS suture in a running standard fashion. The skin was closed in a subcuticular fashion. The remainder of the procedure was performed by me with assistance. All sponge, lap, and needle counts were correct. The patient was taken to her room for recovery in a stable condition. Classification: Scheduled Procedure Type: low transverse senior rd engineer #1: Marina Mitchell Type of Anesthesia: Spinal Antibiotic Given: Ancef 2 grams IV x1 Estimated Blood Loss: 800ml Fluids Replaced: 1100ml Procedure Start Time: 16:01 Procedure Stop Time: 16:49 Findings Description of Procedure: Normal maternal uterus and adnexa. some adhesive disease of omentum to left side of uterus. Presentation: Positive for Vertex Amniotic Membrane Rupture Type: Artificial Amniotic Fluid Description: Clear Placental Delivery Description: Expressed Placenta Disposition: [facility] Cord Vessel Description: 3 Vessels Cord Entanglement: Around neck x 1, loose Nuchal Cord Compression: Without compression A Gender: Male (weight = 8-4) (1 minute): 8 (5 minute): 9 Delayed Cord Clamping: Yes Complications Complications: None
[2022-10-09] MEDS: Oxytocin 15 Units/NS 250ml 15 UNITS/250 ML IV.SOLN 83 UNITS IV (17:05)
[2022-10-09] MEDS: Ketorolac 30 MG/ML Syringe IV ×2 (17:56→23:35)
[2022-10-09] MEDS: Lactated Ringers 1,000 ML 100 ML IV (20:12)
[2022-10-10] VITALS (8 sets, daily range): BP systolic 103–129; BP diastolic 49–82; PULSE 82–109; RESP 15–16; TEMP 36.3–37.1; O2SAT 97–99
[2022-10-10] MEDS: Enoxaparin 40 MG/0.4 ML Syringe SC (04:47)
[2022-10-10 05:17] LABS: Hematocrit 29.8 % (37-47); Hemoglobin 9.4 g/dL (12.0-15.0); Mean Corp Hgb Conc 31.5 g/dL (32-36); Mean Corpuscular Hgb 28.1 pg (27.0-32.0); Mean Corpuscular Volume 89.2 fL (81-99); Mean Platelet Vol. 10.8 fl (6.2-12.0); Platelet Count 185 K/mm3 (150-450); RBC Distribution Width CV 14.7 % (11.6-14.6); RBC Distribution Width SD 48.1 fl (35.1-43.9); Red Blood Count 3.34 M/mm3 (4.2-5.4); White Blood Count 7.2 K/mm3 (4.4-11.0)
[2022-10-10] MEDS: Ketorolac 30 MG/ML Syringe IV ×2 (05:37→11:27)
[2022-10-10] MEDS: Acetaminophen 500 MG Tablet 1000 MG PO ×4 (05:37→23:56)
[2022-10-10] MEDS: Lactated Ringers 1,000 ML 100 ML IV (05:45)
[2022-10-10] MEDS: Senna/Docusate Sodium 1 Tablet PO (11:27)
[2022-10-10] MEDS: 0.9% Saline Lock 10 ML Syringe IV (11:27)
--- NOTE | 2022-10-10 13:22 | PCM.PN.OB ---
Subjective Subjective Pain well controlled at average lochia. Tolerating regular diet. Objective Data Objective Data Vital Signs: Vital Signs Temp Pulse Resp BP Pulse Ox O2 Del Method 97.3 F L 91 16 106/49 L 97 Room Air 10/10/22 07:55 10/10/22 07:55 10/10/22 07:55 10/10/22 07:55 10/10/22 07:55 10/10/22 07:55 Oxygen Delivery Method Room Air Weight: 91.172 kg Body Mass Index (BMI) 35.6 Intake & Output: Intake and Output for Last 24 Hours 10/08/22 10/09/22 10/10/22 23:59 23:59 23:59 Intake Total 2714.1 / 2714.1 1185 / 1185 Output Total 1020 / 1020 1000 / 1000 Balance 1694.1 / 1694.1 185 / 185 Lab / Micro Data Result Diagrams: 10/10/22 04:55 Labs: Laboratory Results - last 24 hr 10/10/22 04:55: WBC 7.2, RBC 3.34 L, Hgb 9.4 L, Hct 29.8 L, MCV 89.2, MCH 28.1, MCHC 31.5 L, RDW Std Deviation 48.1 H, RDW Coeff of Ganesh 14.7 H, Plt Count 185, MPV 10.8 Physical Exam Narrative 2+ lower extremity edema, 1+ upper extremity edema Const alert General Appearance: cooperative GI GI Narrative: soft, moderate distention, fundus firm, appropriately tender. Abdominal bandage clean dry and intact Assessment & Plan (1) deliv NOS-unsp: PLAN: Postoperative day #1 status post repeat section. Patient and are doing well. Patient is working on breast-feeding. DC Garcia catheter and ambulate. Discussed with patient pain control expectations. Mild acute blood loss anemia appropriate for blood loss during surgery. Repeat CBC tomorrow. Likely discharge tomorrow if patient and are continuing to do well.
[2022-10-10] MEDS: Prenatal Vits Tablet 1 TABLET PO (13:37)
[2022-10-10] MEDS: Ibuprofen 600 MG Tablet PO (19:36)
[2022-10-11] MEDS: 0.9% Saline Lock 10 ML Syringe IV ×2 (00:58→08:22)
[2022-10-11] MEDS: Ibuprofen 600 MG Tablet PO ×3 (00:59→12:24)
[2022-10-11 01:15] VITALS: BP 115/72; PULSE 106; RESP 16; TEMP 36.6; O2SAT 96
[2022-10-11] MEDS: Enoxaparin 40 MG/0.4 ML Syringe SC (04:56)
[2022-10-11 05:11] LABS: Hematocrit 27.6 % (37-47); Hemoglobin 8.8 g/dL (12.0-15.0); Mean Corp Hgb Conc 31.9 g/dL (32-36); Mean Corpuscular Hgb 28.4 pg (27.0-32.0); Mean Platelet Vol. 10.3 fl (6.2-12.0); Platelet Count 207 K/mm3 (150-450); RBC Distribution Width SD 48.8 fl (35.1-43.9); White Blood Count 8.9 K/mm3 (4.4-11.0)
[2022-10-11] MEDS: Acetaminophen 500 MG Tablet 1000 MG PO ×2 (06:15→12:24)
--- NOTE | 2022-10-11 06:30 | PCM.PN.OB ---
Subjective Subjective pain well controlled, no SOB or lightheadedness. Urinating without difficulty. Average lochia. + flatus, no BM. fartun. regular diet Objective Data Objective Data Vital Signs: Vital Signs Temp Pulse Resp BP Pulse Ox O2 Del Method 97.8 F 106 H 16 115/72 96 Room Air 10/11/22 01:15 10/11/22 01:15 10/11/22 01:15 10/11/22 01:15 10/11/22 01:15 10/11/22 01:15 Oxygen Delivery Method Room Air Weight: 91.172 kg Body Mass Index (BMI) 35.6 Intake & Output: Intake and Output for Last 24 Hours 10/09/22 10/10/22 10/11/22 23:59 23:59 23:59 Intake Total 2714.1 / 2714.1 1185 / 1185 Output Total 1020 / 1020 2190 / 2190 500 / 500 Balance 1694.1 / 1694.1 -1005 / -1005 -500 / -500 Lab / Micro Data Result Diagrams: 10/11/22 05:05 Labs: Laboratory Results - last 24 hr 10/11/22 05:05: WBC 8.9, RBC 3.10 L, Hgb 8.8 L, Hct 27.6 L, MCV 89.0, MCH 28.4, MCHC 31.9 L, RDW Std Deviation 48.8 H, RDW Coeff of Ganesh 15.0 H, Plt Count 207, MPV 10.3 Physical Exam Const alert General Appearance: cooperative GI GI Narrative: soft, moderate distention, fundus firm, appropriately tender. Abdominal bandage clean dry and intact Assessment & Plan (1) deliv NOS-unsp: PLAN: Postop day #2. Calculated EBL at this point is 1226 mL. Blood count is trending down. Suspect small intra abdominal bleed resulting in trending down of hemoglobin. Patient is overall stable. Will check blood count later today to ensure that is stable. We will give IV iron before discharge. Patient is working on breast-feeding and is doing well. Likely discharge home later today, possibly tomorrow. (2) Acute blood loss anemia:
--- NOTE | 2022-10-11 07:15 | NURSING ---
report given to Cary Ulloa RN who is assuming care of pt at this time
[2022-10-11] MEDS: DiphenhydrAMINE 25 MG Capsule 50 MG PO (07:51)
[2022-10-11 08:03] VITALS: BP 107/66; PULSE 87; RESP 16; TEMP 36.1; O2SAT 97
[2022-10-11] MEDS: FLU VACC QS2022-23(6MOS UP)/PF 60 MCG/0.5 ML SYRINGE IM (10:23)
[2022-10-11] MEDS: Senna/Docusate Sodium 1 Tablet PO (10:24)
[2022-10-11] MEDS: Prenatal Vits Tablet 1 TABLET PO (12:25)
[2022-10-11 14:10] VITALS: BP 118/90; PULSE 93; RESP 16; TEMP 36.3; O2SAT 98
[2022-10-11 16:17] LABS: Hematocrit 35.9 % (37-47); Mean Corp Hgb Conc 33.4 g/dL (32-36); Mean Corpuscular Hgb 28.8 pg (27.0-32.0); Mean Corpuscular Volume 86.3 fL (81-99); Mean Platelet Vol. 10.5 fl (6.2-12.0); Platelet Count 202 K/mm3 (150-450); RBC Distribution Width CV 15.1 % (11.6-14.6); RBC Distribution Width SD 47.2 fl (35.1-43.9); Red Blood Count 4.16 M/mm3 (4.2-5.4); White Blood Count 7.1 K/mm3 (4.4-11.0)
--- NOTE | 2022-10-12 12:49 | PCM.DC.SUM ---
Providers Date of Admission: 10/09/22 Primary Care Physician: No Primary Care Phys Reason For Visit: repeat c section Diagnosis Discharge Diagnosis (1) deliv NOS-unsp: Status: Acute Plan: Postop day #2. Calculated EBL at this point is 1226 mL. Blood count is trending down. Suspect small intra abdominal bleed resulting in trending down of hemoglobin. Patient is overall stable. Will check blood count later today to ensure that is stable. We will give IV iron before discharge. Patient is working on breast-feeding and is doing well. Likely discharge home later today, possibly tomorrow. (2) Acute blood loss anemia: Status: Acute Code(s): D62 - Acute posthemorrhagic anemia Medications at Discharge Home Medications vits,calcium no.78-iron fumarate-folic acid 29 mg-1 mg tablet 1 tab PO DAILY 07/22/19 albuterol 90 mcg/actuation aerosol inhaler 90 mcg inhalation Q6H PRN PRN asthma 10/09/22 cetirizine 10 mg tablet (Zyrtec) 10 mg PO DAILY asthma 10/09/22 montelukast 10 mg tablet (Singulair) 10 mg PO DAILY asthma 10/09/22 Hospital Course Operations - (repeat LTCS on 10/09/22) Summary of Care Provided Hospital Course: 37-year-old male female admitted on 10/09/2022 for repeat section. She had mild acute blood loss anemia. It trended down. On day #2, she was given IV iron before discharge. She was asymptomatic from the anemia. Repeat CBC before she left actually revealed that the hemoglobin recovered somewhat. Total EBL for the surgery would be less than 1000 cc so there is no hemorrhage. Patient was discharged home with routine instructions and follow-up. Weight / BMI Weight Weight: 91.172 kg Body Mass Index (BMI) 35.6 ABG / Lab / Microbiology Data Result Diagrams: 10/11/22 15:05 Laboratory: Laboratory Results - last 24 hr 10/11/22 15:05: WBC 7.1, RBC 4.16 L, Hgb 12.0, Hct 35.9 L, MCV 86.3, MCH 28.8, MCHC 33.4, RDW Std Deviation 47.2 H, RDW Coeff of Ganesh 15.1 H, Plt Count 202, MPV 10.5 Meaningful Use Info Meaningful Use Diagnoses (Choose all that apply): None applicable Discharge Plan Admission Admit Date/Time: 10/09/22 10:48 Primary Reason for Your Visit: Attending Provider: Wendy Lux Primary Care Provider: Care Physician,Kelin Primary Discharge Orders/Prescriptions Prescriptions: Continued vit,[id number] 1 TABLET tablet 1 tab PO DAILY albuterol 90 mcg/actuation Aerosol 90 mcg INHALATION Q6H PRN PRN (Reason: asthma) cetirizine [Zyrtec] 10 mg Tablet 10 mg PO DAILY montelukast [Singulair] 10 mg Tablet 10 mg PO DAILY Discontinued aspirin [Baby Aspirin] 81 mg Tablet,Chewable 81 mg PO DAILY Referrals / Follow Up: Care Physician,No Primary [Primary Care Provider] - Disposition Disposition (needs filled in before D/C Order can be placed): Home, Self Care
== END 2022-10-11 18:03 | disposition home or self-care (01) | DRG 787 ==
PROVIDERS: Obstetrics & Gynecology; Admitting Provider Obstetrics & Gynecology; Visit Provider Obstetrics & Gynecology
PROC: 10D00Z1 Extraction of Products of Conception, Low, Open Approach (ICD-10-PCS; CPT 59514; principal; 2022-10-09 11:45)
DX: O34.211 Maternal care for low transverse scar from previous cesarean delivery (principal); D62 Acute posthemorrhagic anemia; J45.909 Unspecified asthma, uncomplicated; O99.52 Diseases of the respiratory system complicating childbirth; O90.81 Anemia of the puerperium; Z79.82 Long term (current) use of aspirin; Z3A.39 39 weeks gestation of pregnancy; O69.81X0 Labor and delivery complicated by cord around neck, without compression, not applicable or unspecified; Z37.0 Single live birth
CPT/HCPCS: 59050; 85025; 85027; 86850; 86900; 86901; 99221; J1756; J7120; 90686; A4216; G0378; J2405